=== PATIENT | male | born 1965 | race Caucasian/White ===

== ENCOUNTER 2022-01-27 17:21 | Emergency (ER) | payer SELFPAY ==
[~2022-01-27] VITALS: Ht 170.2 cm; Wt 72.1 kg
[2022-01-27] MEDS ORDERED: NAPROSYN500 MG PO (19:54)
== END 2022-01-27 20:05 | disposition home or self-care (01) ==
LOC: ER1 17:21
DX: S52.571A Other intraarticular fracture of lower end of right radius, initial encounter for closed fracture (principal); S52.611A Displaced fracture of right ulna styloid process, initial encounter for closed fracture; F17.200 Nicotine dependence, unspecified, uncomplicated; V29.9XXA Motorcycle rider (driver) (passenger) injured in unspecified traffic accident, initial encounter
CPT/HCPCS: 29125; 73110; 73562; 90471; 90714; 99283

== ENCOUNTER → 2022-01-27 | Emergency (ER) | payer SELFPAY ==
[~2022-01-27] MED LIST: NAPROSYN500 MG PO
== END | disposition left against medical advice (07) ==
LOC: ER1 13:46
DX: Z53.21 Procedure and treatment not carried out due to patient leaving prior to being seen by health care provider (principal)